=== PATIENT | female | born 1965 | race Caucasian/White ===

== ENCOUNTER 2017-10-10 19:48 | Emergency (ER) | payer OTHER | END 2017-10-10 20:52 | disposition home or self-care (01) | LOC: E/R 19:48 | DX: H92.03 Otalgia, bilateral (principal); R42 Dizziness and giddiness | CPT/HCPCS: 99283; Z7502 ==

== ENCOUNTER 2018-08-27 19:48 | Emergency (ER) | payer OTHER ==
[2018-08-27 22:55] LABS: URINE PH (Dip) POC 5.5 (5.0-8.5)
[2018-08-27 22:55] LABS: URINE BLOOD (Dip) POC 1+ (NEGATIVE); URINE GLUCOSE (Dip) POC Negative (NEGATIVE); URINE KETONES (Dip) POC Negative (NEGATIVE); URINE LEUKOCYTE EST (Dip) POC Negative (NEGATIVE); URINE NITRITE (Dip) POC Negative (NEGATIVE); URINE TOTAL PROTEIN POC Negative (NEGATIVE)
[2018-08-27] MEDS: HYDROCODONE/APAP (5/325) TAB PO (22:56)
[2018-08-27] MEDS: ONDANSETRON (ODT) 4 MG TAB ODT (22:56)
[2018-08-28] MEDS: KETOROLAC 30 MG INJ IM (00:09)
== END 2018-08-28 00:14 | disposition home or self-care (01) ==
LOC: FTE 08-28 00:14
DX: R51 Headache (principal)
CPT/HCPCS: 70450; 81003; 96372; 99285-25